=== PATIENT | female | born 1980 | race Caucasian/White ===

== ENCOUNTER 2019-06-20 21:40 | Emergency (ER) | payer BC ==
[2019-06-20] MEDS ORDERED: ACETAMINOPHEN 325 MG TABLET PO ONE (21:45)
--- NOTE | 2019-06-20 22:26 | RADIOLOGY REPORT (SQ) ---
XR ANKLE 3 OR MORE VIEWS CLINICAL STATEMENT: bone tenderness COMPARISON: None FINDINGS: Bony alignment is anatomic. There is no fracture or dislocation. The soft tissues are unremarkable. Ankle mortise is not widened. Soft tissues are unremarkable. IMPRESSION: No fracture.
--- NOTE | 2019-06-20 22:35 | ER Document Report ---
ED General - General Chief Complaint: Ankle Injury Stated Complaint: LEFT FOOT INJURY Time Seen by Provider: 06/20/19 22:25 Notes: Patient is a pleasant 39-year-old female who says a picnic table fell onto her left foot. She has since had severe pain in her left foot. No pain into the remainder of her leg. No new numbness or tingling into her foot. She has had previous fractures to the toes of this foot. Pain is mostly in the lateral a spect of the foot from the proximal foot down to the MTP joints. No other complaints at this time. TRAVEL OUTSIDE OF THE [place] IN LAST 30 DAYS: No - Related Data Allergies/Adverse Reactions: No Known Drug Allergies Allergy (Verified 06/20/19 21:44) Past Medical History - Social History Smoking Status: Never Smoker Chew tobacco use (# tins/day): No Frequency of alcohol use: Occasional Drug Abuse: None Family History: Reviewed & Not Pertinent Patient has suicidal ideation: No Patient has homicidal ideation: No Renal/ Medical History: Denies: Hx Peritoneal Dialysis Review of Systems - Review of Systems Notes: My Normal Review Basic REVIEW OF SYSTEMS: CONSTITUTIONAL : Denies fever, chills, or sweats. Denies recent illness. MUSCULOSKELETAL: Left foot pain SKIN: Denies rash or skin lesions. NEUROLOGICAL: Denies sensory or motor loss. ALL OTHER SYSTEMS REVIEWED AND NEGATIVE. Physical Exam - Vital signs Vitals: Temp Pulse BP Pulse Ox 97.5 F 94 115/66 97 06/20/19 21:46 06/20/19 21:46 06/20/19 21:46 06/20/19 21:46 - Notes Notes: General Appearance: Well nourished, alert, cooperative, no acute distress, moderate obvious discomfort. Vitals: reviewed, See vital signs table. Eyes: PERRL, EOMI, Conjuctiva clear Extremities: strength 5/5 in all extremities, good pulses in all extremities, patient has some slight bruising to the lateral aspect of the foot. She has pain to palpation from just proximal to the fifth fourth and third MTP joints all the way to her proximal foot. No pain to the Achilles tendon. No pain to the calcaneus. No pain on the medial aspect of the foot. Good cap refill. Patient is able to move her toes but says it hurts to do so. Skin: warm, dry, appropriate color, no rash Neuro: speech clear, oriented x 3, normal affect, responds appropriately to questions. Course - Re-evaluation Re-evalutation: 06/20/19 23:15 Patient's x-rays are negative for fracture. Suspect she has a contusion to the foot. Still has some pain with weightbearing therefore give her crutches. I in formed her that she still having pain with weightbearing after 1 week then she should have a repeat x-rays performed. Patient and agreed with plan and patient will be discharged home. Dictation of this chart was performed using voice recognition software; therefore, there may be some unintended grammatical errors. - Vital Signs Vital signs: Temp Pulse Resp BP Pulse Ox 97.5 F 94 115/66 97 06/20/19 21:46 06/20/19 21:46 06/20/19 21:46 06/20/19 21:46 Discharge - Discharge Clinical Impression: Contusion of foot, left Qualifiers: Encounter type: initial encounter Qualified Code(s): S90.32XA - Contusion of left foot, initial encounter Condition: Good Disposition: HOME, SELF-CARE Additional Instructions: Please use the crutches until your are no longer having significant pain with weightbearing on your foot. If you are still having pain with weightbearing on your foot after 1 week then you should return to the ER or follow-up with your doctor for repeat x-rays as on rare occasions sometimes a small crack in the bone is not seen on initial x-ray. Please return to ER if you have severe swelling, large amount increasing pain, or if you have any further concerns.
--- NOTE | 2019-06-20 23:17 | RADIOLOGY REPORT (SQ) ---
3 VIEWS OF LEFT FOOT EXAM DATE: 06/20/2019 10:31 PM CDT HISTORY: Trauma. COMPARISON: None. FINDINGS: No acute fracture or dislocation is seen. The joint spaces are preserved. The soft tissues are unremarkable. IMPRESSION: No acute fracture or malalignment.
[2019-06-20 23:34] VITALS: BP 101/51
== END 2019-06-20 23:35 | disposition home or self-care (01) ==
LOC: ER 21:40
DX: S90.32XA Contusion of left foot, initial encounter (principal); M79.672 Pain in left foot; M25.572 Pain in left ankle and joints of left foot; X58.XXXA Exposure to other specified factors, initial encounter
CPT/HCPCS: 99283